=== PATIENT | male | born 1960 | race Caucasian/White ===

== ENCOUNTER → 2021-12-17 21:01 | Outpatient (REF) | payer MEDICARE, SELFPAY | LOC: HO.SL 21:01 | PROVIDERS: Visit Provider Nurse Practitioner Primary Care | DX: G47.33 Obstructive sleep apnea (adult) (pediatric) (principal); G47.61 Periodic limb movement disorder; G47.00 Insomnia, unspecified; J44.9 Chronic obstructive pulmonary disease, unspecified | CPT/HCPCS: 95810 ==